=== PATIENT | female | born 1940 | race Caucasian/White ===

== ENCOUNTER 2018-01-25 11:22 | Emergency (ER) | payer OTHER ==
[~2018-01-25] VITALS: Ht 157.5 cm; Wt 81.6 kg
[~2018-01-25 11:22] MED LIST: ADVIL200 M1 PO; ASPIRIN EC325 MG PO; ATORVASTATIN CA40 MG PO; CIPRO500 M1 PO; GOOD SENSE IBU200 MG PO; LEVOTHYROXINE75 MCG PO; NEXIUM20 M1 PO; SULINDAC150 MG PO; TOPROL XL25 M1 PO
--- NOTE | 2018-01-25 12:12 | ED NECK/BACK PAIN COMPLAINT ---
History of Present Illness General Chief Complaint: Low Back Pain/Injury Stated Complaint: R SIDE BACK PAIN Source: patient, family, old records Exam Limitations: no limitations Vital Signs & Intake/Output Vital Signs & Intake/Output Vital Signs Date Time Temp Pulse Resp B/P B/P Pulse O2 O2 Flow FiO2 Mean Ox Delivery Rate 01/25 1126 96.6 74 20 127/75 99 Room Air Allergies Coded Allergies: No Known Allergies (04/01/16) Reconcile Medications Cyclobenzaprine HCl 10 MG TABLET 1 TAB PO QPM BACK STRAIN Esomeprazole Magnesium (Nexium) 20 MG CAPSULE.DR 1 CAP PO DAILY GI (Reported) Ibuprofen (Advil) 200 MG CAPSULE 2 CAP PO DAILY PAIN (Reported) Levothyroxine Sodium 75 MCG TABLET 1 TAB PO DAILY THYROID (Reported) Metoprolol Succ XL (Toprol XL) 25 MG TAB 1 TAB PO DAILY BP (Reported) Naproxen 500 MG TABLET 1 TAB PO BID BACK STRAIN Triage Note: PT TO ED C/O RIGHT UPPER BACK PAIN X 2 DAYS. DENIES INJURY. TOOK TYLENOL WITH SOME RELIEF. DENIES SOB. RA SATS 99%. Triage Nurses Notes Reviewed? yes HPI: 77F PMH hypothyroidism, DVT no longer on AC presents with 2 weeks of right sided mid-back pain, worse with twisting movements. No history of trauma or inciting event. No swelling or erythema to the area. Does not have a history of lower back pain. Denies fever, chills, n/v/d, abdominal pain, chest pain, weakness, numbness, paresthesia, incontinence. Past History Travel History Traveled to [place] past 21 day No Medical History Any Pertinent Medical History? 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 BROTHER (Heart Problems). SISTER SISTER Hx Contributory? No Review of Systems Review of Systems Constitutional: Reports: no symptoms. Eyes: Reports: no symptoms. Ears, Nose, Throat, Mouth: Reports: no symptoms. Respiratory: Reports: no symptoms. Cardiovascular: Reports: no symptoms. Gastrointestinal/Abdominal: Reports: no symptoms. Musculoskeletal: Reports: no symptoms. Skin: Reports: no symptoms. Neurological/Psychological: Reports: no symptoms. All Other Systems: Reviewed and Negative Physical Exam Physical Exam General Appearance: well developed/nourished, no apparent distress Head: atraumatic, normal appearance Eyes: Bilateral: normal appearance. Ears, Nose, Throat, Mouth: hearing grossly normal, moist mucous membrane Neck: normal inspection, supple, full range of motion Respiratory: normal breath sounds Cardiovascular: regular rate/rhythm Gastrointestinal: soft, non-tender Back: right paraspinal muscular tenderness in mid back, thoracic vertebral tenderness at T6 without deformity and depression Extremities: non-tender, normal range of motion Neurologic/Psych: awake, alert, oriented x 3, normal mood/affect Skin: intact, normal color, warm/dry Core Measures CVA/TIA Diagnosis: No Progress Differential Diagnosis: C spine injury, cauda equina syn, herniated disc, myofascial strain, pyelo/UTI, sciatica, spinal cord inj, T/L spine injury Plan of Care: Orders Procedure Date/time Status XRY-THORACOLUMBAR SPINE 01/26 1212 Active Diagnostic Imaging: Viewed by Me: Radiology Read. Discussed w/RAD: Radiology Read. Radiology Impression: PATIENT: PO HERRERA PRESENT AGE: 77 PATIENT ACCOUNT NO: [id number] : 42 LOCATION: [facility] ORDERING PHYSICIAN: Osvaldo Cardoso MD SERVICE DATE: 01/25/18 EXAM TYPE : RAD - XRY-THORACOLUMBAR SPINE EXAMINATION: XR THORACOLUMBAR SPINE CLINICAL INFORMATION: Acute onset of back pain. COMPARISON: Chest x-ray of 07/02/16. CT scan of 05/21/16. TECHNIQUE: 2 views of the thoracolumbar spine were obtained. FINDINGS: THORACIC SPINE: The upper thoracic spine is not assessed on the lateral film. There is a mild convex right lower thoracic curve. Alignment is otherwise unremarkable. Mild multilevel spondylosis is present particular in the mid thoracic spine. The paravertebral soft tissues are unremarkable. LUMBOSACRAL SPINE: There is a convex right lumbar curve. Severe degenerative disc disease is present at L1-L2, L2-L3 and L3-L4 with disc space narrowing. Vacuum disc phenomenon is noted. There is prominent marginal osteophytosis. Mild degenerative changes are present at L4-L5 and L5-S1. No acute abnormality. IMPRESSION: 1. Mild multilevel spondylosis in the thoracic spine. No acute abnormality. 2. Severe degenerative changes in the lumbar spine. No acute abnormality. DICTATED BY: Enedina Limon MD DATE/TIME DICTATED:01/25/181323 AMMONIA REFRIGERATION TECHNICIAN:STACY DATE/TIME TRANSCRIBED:01/25/181323 CONFIDENTIAL, DO NOT COPY WITHOUT APPROPRIATE AUTHORIZATION. <Electronically signed in Other Vendor System> SIGNED BY: Enedina Limon MD 01/25/18 1331 Departure Departure Disposition: HOME OR SELF CARE Condition: Stable Clinical Impression Primary Impression: Muscle strain of right upper back Qualifiers: Encounter type: initial encounter Qualified Code: S29.012A - Strain of muscle and tendon of back wall of thorax, initial encounter Referrals: Jerome Bruno MD (PCP/Family) Additional Instructions: Follow up with your PCP. You can use warm compresses for your back. Return to ER if new or worsening symptoms. Departure Forms: Customer Survey General Discharge Information Prescriptions: Current Visit Scripts Cyclobenzaprine HCl 1 TAB PO QPM #30 TAB Naproxen 1 TAB PO BID #28 TAB
--- NOTE | 2018-01-25 13:31 | RADIOLOGY REPORT ---
EXAMINATION: XR THORACOLUMBAR SPINE CLINICAL INFORMATION: Acute onset of back pain. COMPARISON: Chest x-ray of 07/02/16. CT scan of 05/21/16. TECHNIQUE: 2 views of the thoracolumbar spine were obtained. FINDINGS: THORACIC SPINE: The upper thoracic spine is not assessed on the lateral film. There is a mild convex right lower thoracic curve. Alignment is otherwise unremarkable. Mild multilevel spondylosis is present particular in the mid thoracic spine. The paravertebral soft tissues are unremarkable. LUMBOSACRAL SPINE: There is a convex right lumbar curve. Severe degenerative disc disease is present at L1-L2, L2-L3 and L3-L4 with disc space narrowing. Vacuum disc phenomenon is noted. There is prominent marginal osteophytosis. Mild degenerative changes are present at L4-L5 and L5-S1. No acute abnormality. IMPRESSION: 1. Mild multilevel spondylosis in the thoracic spine. No acute abnormality. 2. Severe degenerative changes in the lumbar spine. No acute abnormality.
[2018-01-25] MEDS ORDERED: CYCLOBENZAPRINE10 M1 PO (13:41)
[2018-01-25] MEDS ORDERED: NAPROXEN500 M2 PO (13:41)
[2018-01-25 13:52] VITALS: BP 128/78
== END 2018-01-25 14:34 ==
LOC: ERH 11:22
DX: S29.012A Strain of muscle and tendon of back wall of thorax, initial encounter (principal)
CPT/HCPCS: 72080

== ENCOUNTER 2018-05-30 15:06 | Emergency (ER) | payer OTHER ==
[~2018-05-30] VITALS: Ht 157.5 cm; Wt 87.1 kg
[~2018-05-30 15:06] MED LIST changes: +CYCLOBENZAPRINE10 M1 PO; +NAPROXEN500 M2 PO
[2018-05-30 16:17] LABS: ABSOLUTE BASOPHIL COUNT 0 /CUMM (0.0-0.2); ABSOLUTE EOSINOPHIL COUNT 0.7 /CUMM (0.0-0.7); ABSOLUTE GRANULOCYTE CT 3.8 /CUMM (1.4-6.5); ABSOLUTE LYMPH COUNT 1.1 /CUMM (1.2-3.4); ABSOLUTE MONOCYTE COUNT 0.4 /CUMM (0.10-0.60); BASOPHIL % 0.5 % (0.0-2.0); EOSINOPHIL % 11.1 % (0-5); GRANULOCYTE % 63.6 % (42.2-75.2); HEMATOCRIT 36.1 % (37-47); MEAN CORPUSCULAR HGB 29.9 PG (27.0-31.0); MEAN CORPUSCULAR HGB CONC 33.7 G/DL (33.0-37.0); MEAN CORPUSCULAR VOLUME 88.9 FL (81.0-99.0); MEAN PLATELET VOLUME 7.5 FL (7.4-10.4); PLATELET COUNT 244 /CUMM (130-400); RBC DISTRIBUTION WIDTH 13.5 % (11.5-14.5); RED BLOOD CELL CT 4.06 /CUMM (4.20-5.40); WHITE BLOOD CELL COUNT 5.9 /CUMM (4.8-10.8)
--- NOTE | 2018-05-30 16:35 | ED GENERAL ADULT ---
History of Present Illness General Chief Complaint: Female Urogenital Problems Stated Complaint: HEMAURIA Source: patient, family Exam Limitations: no limitations Vital Signs & Intake/Output Vital Signs & Intake/Output Vital Signs Date Time Temp Pulse Resp B/P B/P Pulse O2 O2 Flow FiO2 Mean Ox Delivery Rate 05/30 1733 98.0 68 18 148/70 98 Room Air 05/30 1547 97.8 70 16 151/80 95 Room Air Allergies Coded Allergies: No Known Allergies (04/01/16) Reconcile Medications Cephalexin (Keflex) 500 MG CAPSULE 1 CAP PO TID UTI Cyclobenzaprine HCl 10 MG TABLET 1 TAB PO QPM BACK STRAIN Esomeprazole Magnesium (Nexium) 20 MG CAPSULE.DR 1 CAP PO DAILY GI (Reported) Ibuprofen (Advil) 200 MG CAPSULE 2 CAP PO DAILY PAIN (Reported) Levothyroxine Sodium 75 MCG TABLET 1 TAB PO DAILY THYROID (Reported) Metoprolol Succ XL (Toprol XL) 25 MG TAB 1 TAB PO DAILY BP (Reported) Naproxen 500 MG TABLET 1 TAB PO BID BACK STRAIN Phenazopyridine HCl (Pyridium) 100 MG TABLET 1 TAB PO TID UTI Triage Note: pt to ed for hematuria x1 week with urinary urgency. denies fevers. also c/o of lower abd pain, intermittently sharp. awake/alert with easy wob, mmm. Triage Nurses Notes Reviewed? yes Onset: Gradual Duration: day(s): Timing: constant HPI: 77-year-old female with a history of hypertension, PE/DVT, hypothyroid presenting with suprapubic discomfort, hematuria, and urinary frequency/urgency times 1 week. Denies fevers, nausea, vomiting, dysuria, back pain, vaginal discharge/bleeding. (Lala Mora) Past History Travel History Traveled to [place] past 21 day No Medical History Any Pertinent Medical History? 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 BROTHER (Heart Problems). SISTER SISTER Hx Contributory? No (Lala Mora) Review of Systems Review of Systems Constitutional: Reports: no symptoms. EENTM: Reports: no symptoms. Respiratory: Reports: no symptoms. Cardiovascular: Reports: no symptoms. GI: Reports: see HPI. Genitourinary: Reports: no symptoms. Musculoskeletal: Reports: no symptoms. Skin: Reports: no symptoms. Neurological/Psychological: Reports: no symptoms. Hematologic/Endocrine: Reports: no symptoms. Immunologic/Allergic: Reports: no symptoms. All Other Systems: Reviewed and Negative (Lala Mora) Physical Exam Physical Exam General Appearance: well developed/nourished, no apparent distress, alert, awake Comments: Gen.: Well-nourished, well-developed, no acute distress. Head: Normocephalic, atraumatic. Eyes: Normal inspection bilaterally Ears: Normal inspection bilaterally Nose: Normal inspection Neck: Normal inspection Lungs: clear to auscultation bilaterally, normnal breath sounds Heart: regular rate and rhythm Abdomen: soft and non-tender Back: No CVA tenderness Extremities: Normal inspection Neurologic: alert and oriented x3, steady gait Skin: warm and dry Psychiatric: Normal mood and affect, no apparent delusions or hallucinations, behavior appropriate Core Measures ACS in differential dx? No CVA/TIA Diagnosis: No Sepsis Present: No Sepsis Focused Exam Completed? No (Lala Mora) Progress Differential Diagnoses I considered the following diagnoses in my evaluation of the patient: [UTI versus pyelonephritis versus SUZANNA versus sepsis, low concern for cervicitis versus PID versus malignancy] Initial ED EKG: none (Lala Mora) Plan of Care: Orders Procedure Date/time Status CULTURE,URINE 05/30 1548 Active URINALYSIS 05/30 1548 Complete LACTIC ACID 05/30 1548 Complete COMPREHENSIVE METABOLIC PANEL 05/30 1548 Complete CBC WITHOUT DIFFERENTIAL 05/30 154 Complete Laboratory Tests 05/30/18 1607: Anion Gap 8, Estimated GFR 40 L, BUN/Creatinine Ratio 20.8, Glucose 85, Lactic Acid < 0.5 L, Calcium 9.2, Total Bilirubin 0.5, AST 27, ALT 30, Alkaline Phosphatase 95, Total Protein 7.1, Albumin 3.9, Globulin 3.2, Albumin/Globulin Ratio 1.2, CBC w Diff NO MAN DIFF REQ, RBC 4.06 L, MCV 88.9, MCH 29.9, MCHC 33.7, RDW 13.5, MPV 7.5, Gran % 63.6, Lymphocytes % 17.9 L, Monocytes % 6.9, Eosinophils % 11.1 H, Basophils % 0.5, Absolute Granulocytes 3.8, Absolute Lymphocytes 1.1 L, Absolute Monocytes 0.4, Absolute Eosinophils 0.7, Absolute Basophils 0 05/30/18 1554: Urine Color BROWN H, Urine Clarity TURBD H, Urine pH 6.0, Ur Specific [place] >= 1.030, Urine Protein 100 H, Urine Ketones NEG, Urine Nitrite POS H, Urine Bilirubin NEG@ICTO, Urine Urobilinogen 1.0, Ur Leukocyte Esterase LARGE H, Ur Microscopic SEDIMENT EXAMINED, Urine RBC PACKD H, Urine WBC PACKD H, Ur Epithelial Cells FEW, Urine Bacteria FEW H, Urine Hemoglobin LARGE H, Urine Glucose NEG Microbiology 05/30 1554 URINE ROUT: Urine Culture - RECD UA is suspicious for infection. Culture sent and covered with ceftriaxone. Labs show mild kidney dysfunction that is at baseline. Low concerns for systemic disease as patient has been afebrile with no nausea or vomiting, and has normal WBC. Given Rx Pyridium and Keflex. Will follow up with her PMD and given strict return precautions. (Lala Mora) (Sera RODRIGUEZ,Heath Mora) Departure Departure Disposition: HOME OR SELF CARE Condition: Stable Clinical Impression Primary Impression: UTI (urinary tract infection) Referrals: Jerome Bruno MD (PCP/Family) Additional Instructions: Take Pyridium and Keflex as prescribed. Follow-up with your primary care provider for reevaluation. Return to the emergency department for any new or worsening symptoms per Departure Forms: Customer Survey General Discharge Information Prescriptions: Current Visit Scripts Cephalexin (Keflex) 1 CAP PO TID #30 CAP Phenazopyridine HCl (Pyridium) 1 TAB PO TID #6 TAB (Lala Mora) PA/SKILL TRAINING PROGRAM COORDINATOR Co-Sign Statement Statement: ED Attending supervision documentation- [X] I saw and evaluated the patient. I have also reviewed all the pertinent lab results and diagnostic results. I agree with the findings and the plan of care as documented in the PA's/SKILL TRAINING PROGRAM COORDINATOR's documentation. [] I have reviewed the ED Record and agree with the PA's/SKILL TRAINING PROGRAM COORDINATOR's documentation. [] Additions or exceptions (if any) to the PAs/SKILL TRAINING PROGRAM COORDINATOR's note and plan are summarized below: [] (Sera RODRIGUEZ,Heath Mora) Critical Care Note Critical Care Note Critical Care Time: non-applicable (Mallory DURAND,Lala)
[2018-05-30 17:33] VITALS: BP 148/70
[2018-05-30] MEDS ORDERED: KEFLEX500 M1 PO (17:55)
[2018-05-30] MEDS ORDERED: PYRIDIUM100 M1 PO (17:55)
== END 2018-05-30 18:05 ==
LOC: ERH 15:06
PROVIDERS: Physician Assistant
DX: N39.0 Urinary tract infection, site not specified (principal); I10 Essential (primary) hypertension; I26.99 Other pulmonary embolism without acute cor pulmonale; E03.9 Hypothyroidism, unspecified
CPT/HCPCS: 81001; 87086; 96374; J0696